=== PATIENT | female | born 1955 ===

== ENCOUNTER 2019-12-27 10:45 | Inpatient (IN) | payer OTHER ==
[~2019-12-27] VITALS: Ht 157.5 cm; Wt 52.2 kg
[2019-12-27] MEDS ORDERED: TOPROL XL25 M1 PO (12:04)
== END 2020-01-03 09:51 | disposition home or self-care (01) | DRG 740 ==
LOC: OB/GYN 12-30 05:10 → O/R 12-30 05:10 → OB/GYN 12-30 14:35
PROVIDERS: ADMIT Obstetrics & Gynecology Gynecologic Oncology
PROC: 0UT20ZZ Resection of Bilateral Ovaries, Open Approach (ICD-10-PCS; 2019-12-30)
PROC: 0UT70ZZ Resection of Bilateral Fallopian Tubes, Open Approach (ICD-10-PCS; 2019-12-30)
PROC: 0DBU0ZZ Excision of Omentum, Open Approach (ICD-10-PCS; 2019-12-30)
PROC: 0DBW0ZZ Excision of Peritoneum, Open Approach (ICD-10-PCS; 2019-12-30)
PROC: 0UT90ZZ Resection of Uterus, Open Approach (ICD-10-PCS; principal; 2019-12-30 07:00)
DX: C54.1 Malignant neoplasm of endometrium (principal); C56.2 Malignant neoplasm of left ovary; C78.6 Secondary malignant neoplasm of retroperitoneum and peritoneum; C79.89 Secondary malignant neoplasm of other specified sites; C79.2 Secondary malignant neoplasm of skin; C79.82 Secondary malignant neoplasm of genital organs